=== PATIENT | female | born 1950 | race Two or more races ===

== ENCOUNTER → 2019-11-30 | Outpatient (CLI) | payer BC ==
--- NOTE | 2019-11-30 13:28 | KCIC ---
MRI study right shoulder without contrast Clinical indications: Right shoulder pain. Decreased range of motion. Progression in recent years. TECHNIQUE: Noncontrast MRI sequences of the right shoulder performed in all 3 planes. FINDINGS: There is a complete tear of the lateral aspect of the supraspinatus tendon at it's insertion onto the greater tubercle. Transverse dimension of the defect is 14 mm. The AP dimension of the defect is 12 mm. No significant retraction of the supraspinatus tendon is evident. Small amount of fluid is seen within the subdeltoid and subacromial bursa as a result of the complete tear. In addition, there is tendinosis of the lateral aspect of the infraspinatus tendon. Subscapularis tendon is intact. The tendon of the long head of the biceps is intact. No significant muscle atrophy is seen. There is moderate degenerative osteoarthritis and spurring of the AC joint. Mild spurring of the inferior edge of the acromial process is seen. Type III acromial process is seen. These findings may impinge the acromial humeral space. Chronic cystic change of the posterior lateral aspect of the humeral head is seen secondary to chronic impingement. No fracture or marrow infiltrative process is seen. Mild degenerative spurring of the glenohumeral joint is seen. No abnormal glenohumeral joint effusion is seen. No loose body is evident. The glenoid labrum is intact. No paralabral ganglion cyst or spinoglenoid notch ganglion cyst is seen. IMPRESSION: Complete rotator cuff tear. Impingement of the acromial humeral space. Electronically signed by: Ulises Johnson MD (11/30/2019 1:25 PM) [id number]
== END | disposition home or self-care (01) ==
LOC: KCIC MRI 09:06
PROVIDERS: ATTEND Orthopaedic Surgery
DX: M75.121 Complete rotator cuff tear or rupture of right shoulder, not specified as traumatic (principal); M19.011 Primary osteoarthritis, right shoulder; M75.41 Impingement syndrome of right shoulder
CPT/HCPCS: 73221

== ENCOUNTER → 2019-12-10 | Outpatient (CLI) | payer BC | END | disposition home or self-care (01) | LOC: LAB 13:20 | PROVIDERS: ATTEND Orthopaedic Surgery | DX: Z11.59 Encounter for screening for other viral diseases (principal) | CPT/HCPCS: U0003-CS ==

== ENCOUNTER 2019-12-14 05:41 | Observation (INO) | payer BC, MEDICARE ==
[~2019-12-14] VITALS: Ht 154.9 cm; Wt 62.6 kg
[2019-12-14] MEDS ORDERED: [UNRECOGNIZED DRUG - CODE] IV (06:37)
[2019-12-14] MEDS ORDERED: ASPI-630 PO (06:37)
[2019-12-14] MEDS ORDERED: OSPE60TA2 PO (06:39)
[2019-12-14] MEDS ORDERED: OMEG1CAP2 PO (06:43)
[2019-12-14] MEDS ORDERED: ASCO500C PO (06:44)
[2019-12-14] MEDS ORDERED: VITA400C37 PO (06:46)
[2019-12-14] MEDS ORDERED: CALC1CAP7 PO (06:48)
[2019-12-14] MEDS ORDERED: CRAN250C PO (06:49)
[2019-12-14] MEDS ORDERED: BUPIVACAINE MPF 0.25% 30 ML VIAL. ONE ×2 (06:54)
[2019-12-14] MEDS ORDERED: EPINEPHrine VIAL 30 MG/30 ML VIAL ONE (06:54)
[2019-12-14] MEDS ORDERED: LIDOCAINE 1% PF 2 ML VIAL. ONE (06:55)
[2019-12-14] MEDS ORDERED: BUPIVACAINE-EPI 0.5%-1:200000 MPF 30 ML VIAL. ONE (06:55)
[2019-12-14] MEDS ORDERED: BUPIVACAINE MPF 0.5% 30 ML VIAL. ONE (06:55)
[2019-12-14] MEDS ORDERED: IV RINGERS,LACTATED 1000ML 1,000 ML IV SCH (07:00)
[2019-12-14] MEDS ORDERED: MORPHINE SULFATE 2 MG/ML VIAL. IV PRN (07:00)
[2019-12-14] MEDS ORDERED: fentaNYL PF VIAL 100 MCG/2 ML VIAL IV PRN ×2 (07:00)
[2019-12-14] MEDS ORDERED: PROCHLORPERAZINE 10 MG/2 ML VIAL. IV PRN (07:00)
[2019-12-14] MEDS ORDERED: ONDANSETRON PF 4 MG/2 ML VIAL. IV PRN (07:00)
[2019-12-14] MEDS ORDERED: HYDROmorphone 2 MG/ML VIAL IV PRN (07:00)
[2019-12-14] MEDS ORDERED: MIDAZOLAM HCL/PF 2 MG/2 ML VIAL. ONE (07:03)
[2019-12-14] MEDS ORDERED: LIDOCAINE 2% PF 5 ML VIAL. ONE (07:05)
[2019-12-14] MEDS ORDERED: ROCURONIUM 50 MG/5 ML VIAL. ONE (07:05)
[2019-12-14] MEDS ORDERED: DEXAMETHASONE SOD PHOS 4 MG/ML VIAL ONE (07:05)
[2019-12-14] MEDS ORDERED: fentaNYL PF VIAL 250 MCG/5 ML VIAL ONE (07:05)
[2019-12-14] MEDS ORDERED: PROPOFOL 10 MG/ML (20ML) VIAL. IV ONE (07:05)
[2019-12-14] MEDS ORDERED: ONDANSETRON PF 4 MG/2 ML VIAL. ONE (07:06)
[2019-12-14] MEDS ORDERED: ceFAZolin SODIUM IV Push 1 GM VIAL. IVP ONE (08:16)
[2019-12-14] MEDS ORDERED: ePHEDrine PF IN SALINE 50 MG/10 ML SYRINGE. IV ONE (08:16)
[2019-12-14] MEDS ORDERED: PHENYLEPHRINE in 0.9% NACL PF 1 MG/10 ML SYRINGE. IV ONE (08:16)
[2019-12-14] MEDS ORDERED: NEOSTIGMINE METHYLSULFATE 5 MG/5 ML SYRINGE. ONE (08:53)
[2019-12-14] MEDS ORDERED: GLYCOPYRROLATE 1 MG/5 ML VIAL. ONE (08:53)
[2019-12-14] MEDS ORDERED: SEVOFLURANE 61 TO 120 MINUTES. IH ONE (08:56)
--- NOTE | 2019-12-14 09:20 | PDOC4 ---
Operative Note Operative Note Date of Procedure: December 14, 2019 Pre-Op Diagnosis: Traumatic complete tear of right rotator cuff, initial encounter - S46.011A Osteoarthritis of right acromioclavicular joint - M19.011 Impingement syndrome of right shoulder - M75.41 Shoulder pain, right - M25.511 Post-Op Diagnosis: Traumatic complete tear of right rotator cuff, initial encounter - S46.011A Osteoarthritis of right acromioclavicular joint - M19.011 Impingement syndrome of right shoulder - M75.41 Shoulder pain, right - M25.511 Procedure: Right shoulder, repair of ruptured musculotendinous cuff (rotator cuff) open, acute CPT 36470 Arthroscopy, shoulder, surgical; distal claviculectomy including distal articular surface (Jo procedure) CPT 05363 Arthroscopy, shoulder, surgical; decompression of subacromial space with partial acromioplasty CPT 85577 Arthroscopy, shoulder, surgical debridement, extensive CPT 45747 Surgeon: Austin Huntley MD Folder Machine: LEXI Tejeda Anesthesia: General EBL: 25 mL Specimens Obtained: none Complications: none Drains: none Findings: Full-thickness rotator cuff tear of the supraspinatus tendon. Impingement occurring due to prominent acromion. Prominent arthritic acromioclavicular joint. She had bony prominences and spurs at the humeral footprint Implants: Arthrex swivel lock anchors 4.75 mm x 4 Indications for Procedure: This 69-year-old fell and injured her shoulder. Since then she describes radiating pain with a "clicking" sensation. She has pain reaching for objects, sleeping on her side, or holding a gallon of milk. She doesn't like cortisone injections. Her MRI shows a full-thickness rotator cuff tear of the distal supraspinatus tendon. She has tenderness at the acromioclavicular joint and arthritis in that location. She has impingement syndrome. I recommended arthroscopy with subacromial decompression, distal clavicle excision, and rotator cuff repair. We discussed the potential risks of infection, neurovascular injury, fracture, bleeding, or other potential surgical or anesthetic complications. We also discussed healing expectations including postoperative use of DonJoy sling, need for physical therapy, and refrain from overhead lifting for 3 months; I described that this is a more difficult surgery for patients and she may take up to a year to heal. All of her questions were answered and she desires to proceed with surgery. Procedure in Detail: The patient was identified in the preoperative holding area. The correct right shoulder was marked by me. The patient was taken to the operating room where general anesthesia was used. The patient was positioned in the beachchair position with the bony prominences well-padded and the eyes protected. Preoperative antibiotics were given intravenously. A timeout procedure was performed. Under sterile technique 20 mL of bupivacaine with epinephrine was injected into the subacromial space and glenohumeral joint. The limb was then thoroughly prepared with surgical ChloraPrep solution circumferentially. Sterile waterproof arthroscopy shoulder drapes were applied, along with an impervious stockinette over the arm, and a Spider arm milner. Posterior, posterolateral, lateral, and anterior arthroscopy portals were used. The glenohumeral joint showed normal articular surfaces but there was degenerative tearing of a small area of the anterior labrum and a shaving debridement was performed. The biceps tendon was palpated with the shaver, and retracted into the joint, and all of the biceps tendon that I can visualize appears normal. The distal portion of the supraspinatus is detached from the humeral head, and the footprint is exposed. This is a full-thickness tear. A PDS marker suture was placed. The subacromial space was entered. The anterior acromion was prominent and the subacromial space was narrowed. Extensive bursa was debrided with a shaver. The [employer] Edge thermal energy bipolar device was used for hemostasis and to resect the undersurface periosteum exposing the prominent anterior acromion. A 6.0 mm oval temitope was used for the acromioplasty. A three-stage acromioplasty was performed, with the teimtope first laterally, removing anterior acromion, using the distal clavicle as a reference. The temitope was then placed in the posterior portal, and a cutting block technique was used for smoothing of the lateral edge of the acromion tapering the anterior acromion into a Bigliani type I configuration. Final smoothing of the acromion was performed with the temitope again in the lateral portal, and direct arthroscopic visualization. The impingement of the subacromial space was now nicely decompressed. No further impingement appears to be occurring from the acromion, however the arthritic distal clavicle is degenerative with an osteoarthritic distal clavicle articular surface. The temitope was used to resect the entire articular surface of the distal clavicle and 10 mm of distal clavicle bone, completing the [place] arthroscopic distal clavicle excision. Further shaving debridement was performed of the bursa over the cuff, and the cuff tear was identified at the area of the marker suture. The arthroscopic ins truments were removed. Antibiotics were redosed. Outer gloves were changed. The skin was prepared a second time with ChloraPrep solution. An anterior lateral deltoid raphae splinting incision was used. Care was made not to extend more than 4 cm distally so as to avoid axillary nerve injury. Self-retaining retractors were placed. My traffic assistant used an [employer] [place] retractor in addition to the self-retaining retractors. The motorized bur was used to decorticate the supraspinatus footprint, and create a "crimson duvet". The 2 medial 4.75 mm swivel lock anchors with swaged suture tapes were used. All of the medial sutures were deployed with Arthrex scorpion device, about 16 mm from the distal edge of the cuff. The medial mattress sutures were secured and tied, and Abel my traffic assistant held tension reducing the cuff while the sutures were tied. The swaged suture tapes were then trimmed, the tapes were crossed, and the 2 lateral row anchors were now placed on the humeral cortex for secure speed bridge repair. Initial placement of the first anchor at the lateral footprint showed the bone to be too soft to hold the anchor in that location. The additional sutures from the lateral row anchors were used posteriorly to secure the edges of the dog ear of the tear. A secure and tension-free repair was obtained. The shoulder was taken through a range of motion, and the repair security confirmed. Copious saline irrigation was used. I closed the fascia of the deltoid with #0 Vicryl suture in a [id number] fashion. My traffic assistant Breezy then completed the subcutaneous closure with 2-0 Vicryl. He closed the portals with #3-0 Prolene. He repaired the skin incision with #3-0 Prolene, Mastisol and Steri- Strips. He injected an additional 30 mL of bupivacaine with epinephrine. Xeroform was used over the portals. A bulky sterile dressing was applied. A DonJoy UltraSling was applied. There were no apparent complications. AUSTIN HUNTLEY MD Dec 14, 2019 09:20
[2019-12-14] MEDS ORDERED: oxyCODONE/APAP 5/325 1 TAB TABLET PO PRN (09:30)
[2019-12-14] MEDS ORDERED: MORPHINE SULFATE 2 MG/ML VIAL. IVP PRN (09:30)
[2019-12-14] MEDS ORDERED: POLYETHYLENE GLYCOL 3350 17 GM PACKET. PO PRN (09:30)
[2019-12-14] MEDS ORDERED: fentaNYL PF VIAL 100 MCG/2 ML VIAL IVP PRN (09:30)
[2019-12-14] MEDS ORDERED: MORPHINE SULFATE 4 MG/ML VIAL. IVP PRN (09:30)
[2019-12-14] MEDS ORDERED: ONDANSETRON PF 4 MG/2 ML VIAL. IVP PRN (09:30)
[2019-12-14] MEDS ORDERED: DEXTROSE 50% 25 GM / 50ML DISP.SYRIN. IV PRN (09:30)
[2019-12-14] MEDS ORDERED: oxyCODONE/APAP 5/325 1 TAB TABLET PO ONE (09:45)
[2019-12-14] MEDS: IV 1/2 NORMAL SALINE 1,000 ML IV SCH (14:30)
--- NOTE | 2019-12-14 16:03 | NUR ---
The patient, GATITO SOOD, 69 y/o, F admitted by AUSTIN HUNTLEY MD, was given written information regarding hospital policies, unit procedures and contact persons. Glasses and glass case only valuables listed.
[2019-12-14 19:00] VITALS: BP 106/52
[2019-12-14 23:00] VITALS: BP 97/47
[2019-12-14] MEDS: oxyCODONE/APAP 5/325 1 TAB TABLET PO PRN (23:17)
[2019-12-15 03:00] VITALS: BP 113/45
[2019-12-15] MEDS: oxyCODONE/APAP 5/325 1 TAB TABLET PO PRN ×4 (03:47→15:50)
[2019-12-15] MEDS: IV 1/2 NORMAL SALINE 1,000 ML IV SCH ×2 (03:50→14:23)
[2019-12-15] MEDS ORDERED: MAGNESIUM HYDROXIDE 2,400 MG/30 ML ORAL.SUSP. PO PRN (06:00)
[2019-12-15 07:00] VITALS: BP 102/43
--- NOTE | 2019-12-15 08:12 | PDOC ---
ORTHO PROGRESS NOTES DATE: 12/15/19 TIME: 08:06 Subjective Patient states that there is a slight bit of pain but she just received her medication for this morning. Post-op Day: 1 Procedure Right shoulder muscular tenderness open cuff repair with right arthroscopic distal claviculectomy (Jo procedure ) Right arthroscopic decompression of subacromial space with extensive debridement. Vitals Vital Signs Date Time Temp Pulse Resp B/P (MAP) Pulse Ox O2 Delivery O2 Flow Rate FiO2 12/15/19 07:43 Room Air 12/15/19 07:00 98.4 57 18 102/43 (62) 99 98.4 12/14/19 09:20 10 Notes Awake and alert Assessment and Plan Postop day 1 right shoulder rotator cuff repair with distal clavicle excision Jo procedure, subacromial decompression, with extensive debridement. Motor and sensation intact distally at the fingers. Dressing is dry with the exception of one small spot of drainage. She is moving her fingers and wrist without restriction. She can be discharged today. Follow-up in clinic on scheduled date. IRA MALIK APRN Dec 15, 2019 08:12
[2019-12-15] MEDS ORDERED: MULTIVITAMIN with MINERAL TABLET. PO SCH (09:00)
[2019-12-15] MEDS ORDERED: CHOLECALCIFEROL (VITAMIN D3) 1,000 UNIT TABLET PO SCH (09:00)
[2019-12-15] MEDS ORDERED: SENNOSIDES/DOCUSATE 8.6/50MG TABLET. PO SCH (09:00)
[2019-12-15 11:00] VITALS: BP 113/46
[2019-12-15] MEDS ORDERED: PROCHLORPERAZINE 10 MG/2 ML VIAL. IV PRN (11:15)
[2019-12-15] MEDS ORDERED: PROCHLORPERAZINE 10 MG/2 ML VIAL. IM PRN (11:15)
[2019-12-15 15:00] VITALS: BP_SYST 100; BP_SYST 113; BP_DIAS 41; BP_DIAS 46
[2019-12-15] MEDS ORDERED: BISACODYL 10 MG SUPP.RECT. PR PRN (16:00)
== END 2019-12-15 18:28 | disposition home or self-care (01) ==
LOC: SURG 05:41 → 4 NORTH 10:41
PROVIDERS: ADMIT Orthopaedic Surgery; ATTEND Orthopaedic Surgery
DX: S46.011A Strain of muscle(s) and tendon(s) of the rotator cuff of right shoulder, initial encounter (principal); M19.011 Primary osteoarthritis, right shoulder; M75.41 Impingement syndrome of right shoulder; W18.30XA Fall on same level, unspecified, initial encounter; Y93.89 Activity, other specified; Y92.89 Other specified places as the place of occurrence of the external cause; Y99.8 Other external cause status
CPT/HCPCS: 23410; 29823; 29824; 29826; 96365; 96366; 96375; 97110; 97116; 97162; 97166; 97530; A7015; C1713; G0378; G0379; J0171; J0690; J0780; J1100; J2250; J2370; J2405; J2704; J2710; J3010; J3490; J7120